=== PATIENT | male | born 1945 | race Caucasian/White ===

== ENCOUNTER → 2017-05-24 | Outpatient (REF) | payer MEDICARE, OTHER ==
[~2017-05-24] MED LIST: AMOX875T2 PO; ASPI325T24 PO; ATOR80TA59 PO; CARV25TA PO; CO Q100C10 PO; COLA100C5 PO; COUM1TAB17 PO; DEMA20TA6 PO; DEXT30SUSP PO; ELIQ5TAB PO; EPLE50TA PO; ESCI10TA2 PO; FURO40TA2 PO; FURO40VL IV; HYDR-3363 PO; LISI-538 PO; LORA10TA2 PO; METF10004 PO; METF500T13 PO; METR1TAB66 PO; MILKSUS PO; MOM30SS PO; NASA1SPR; NATE120T4 PO; NITR4TASL SL; NYST10PW TOP; PRIL40CA PO; TYLE325T5 PO; VITA200015 PO; VITMTA PO
[2017-05-27 00:07] LABS: Lyme Disease IgG/IgM Antibodie <0.91 ISR (0.00-0.90); Lyme Disease IgM Ab Quantitati <0.80 index (0.00-0.79)
== END ==
LOC: M LAB REF 16:49
PROVIDERS: ATTEND Nurse Practitioner Adult Health
DX: M25.50 Pain in unspecified joint (principal); Z11.59 Encounter for screening for other viral diseases

== ENCOUNTER → 2017-05-31 | Outpatient (CLI) | payer MEDICARE, OTHER ==
[2017-05-31 18:17] LABS: ALBUMIN 3.7 GM/DL (3.2-5.2); ANION GAP 6 MEQ/L (8-16); BLOOD UREA NITROGEN 22 MG/DL (7-18); CALCIUM LEVEL 9.1 MG/DL (8.8-10.2); CARBON DIOXIDE LEVEL 34 MEQ/L (21-32); CHLORIDE LEVEL 103 MEQ/L (98-107); CREATININE FOR GFR 1.24 MG/DL (0.70-1.30); GLOMERULAR FILTRATION RATE > 60.0 (>42); GLUCOSE, FASTING 194 MG/DL (83-110); MAGNESIUM LEVEL 2.1 MG/DL (1.8-2.4); PHOSPHORUS LEVEL 4.1 MG/DL (2.5-4.9); POTASSIUM SERUM 3.8 MEQ/L (3.5-5.1); SODIUM LEVEL 143 MEQ/L (136-145)
== END ==
LOC: M LAB 15:20
PROVIDERS: ATTEND Physician Assistant
DX: I50.42 Chronic combined systolic (congestive) and diastolic (congestive) heart failure (principal); I48.0 Paroxysmal atrial fibrillation; I42.0 Dilated cardiomyopathy

== ENCOUNTER → 2018-02-28 | Outpatient (CLI) | payer MEDICARE, OTHER ==
[2018-02-28 15:23] LABS: HEMATOCRIT 38.4 % (42.0-52.0); HEMOGLOBIN 12.3 g/dl (13.5-17.5); MEAN CORPUSCULAR HEMOGLOBIN 28.1 pg (27.0-33.0); MEAN CORPUSCULAR VOLUME 87.9 fl (80.0-96.0); PLATELET COUNT, AUTOMATED 240 10^3/uL (150-450); RED BLOOD COUNT 4.37 10^6/uL (4.30-6.10); RED CELL DISTRIBUTION WIDTH 14.3 % (11.5-14.5); WHITE BLOOD COUNT 11.8 10^3/uL (4.0-10.0)
[2018-02-28 16:03] LABS: ANION GAP 4 MEQ/L (8-16); BLOOD UREA NITROGEN 18 MG/DL (7-18); CALCIUM LEVEL 8.7 MG/DL (8.8-10.2); CARBON DIOXIDE LEVEL 32 MEQ/L (21-32); CHLORIDE LEVEL 106 MEQ/L (98-107); CREATININE FOR GFR 1.12 MG/DL (0.70-1.30); GLOMERULAR FILTRATION RATE > 60.0 (>42); GLUCOSE, FASTING 91 MG/DL (70-100); MAGNESIUM LEVEL 2.5 MG/DL (1.8-2.4); POTASSIUM SERUM 4.1 MEQ/L (3.5-5.1); SODIUM LEVEL 142 MEQ/L (136-145)
== END ==
LOC: M LAB 14:44
DX: I42.0 Dilated cardiomyopathy (principal)
CPT/HCPCS: 83735

== ENCOUNTER 2018-08-10 12:40 | Day surgery (SDC) | payer MEDICARE, BC, OTHER ==
[~2018-08-10 12:40] MED LIST changes: -AMOX875T2 PO; -ASPI325T24 PO; -ATOR80TA59 PO; -CARV25TA PO; -CO Q100C10 PO; -COLA100C5 PO; -COUM1TAB17 PO; -DEMA20TA6 PO; -DEXT30SUSP PO; -ELIQ5TAB PO; -EPLE50TA PO; -ESCI10TA2 PO; -FURO40TA2 PO; -FURO40VL IV; -HYDR-3363 PO; -LISI-538 PO; -LORA10TA2 PO; -METF10004 PO; -METF500T13 PO; -METR1TAB66 PO; +MIDAZOLAM INJ 2 MG/2 ML VIAL (J2250) As Ordered; -MILKSUS PO; -MOM30SS PO; -NASA1SPR; -NATE120T4 PO; -NITR4TASL SL; -NYST10PW TOP; -PRIL40CA PO; -TYLE325T5 PO; -VITA200015 PO; -VITMTA PO; +fentaNYL 100 MCG/2 ML INJECTION (J3010) As Ordered
[2018-08-10] MEDS: PROPARACAINE 0.5% OPHTH SOL 15ML OS (13:54)
[2018-08-10] MEDS: PHENYLEPHRINE 2.5% OPHTH SOL 2ML OS (13:55)
[2018-08-10] MEDS: TROPICAMIDE 1% OPHTH SOLN 2ML OS (13:55)
[2018-08-10] MEDS: OFLOXACIN 0.3 % (OCUFLOX) OPTH SOL 5ML OS (13:55)
[2018-08-10] MEDS: CARVedilol 6.25 MG TAB PO (13:58)
[2018-08-10 14:01] LABS: BEDSIDE GLUCOSE 151 MG/DL (83-110)
[2018-08-10] MEDS: POVIDONE-IODINE 5% OPHTH PREP SOL 30ML As Ordered (14:29)
[2018-08-10] MEDS: DUOVISC (0.50ML VISCOAT/0.55ML PROVISC) OPHTH KIT As Ordered (14:30)
[2018-08-10] MEDS: BALANCED SALT IRRIGATION SOLUTION 500ML BAG (FOR OR EYE MACHINE) As Ordered (14:30)
[2018-08-10] MEDS: CEFUROXIME 1MG/0.1ML INTRACAMERAL INJ As Ordered (14:30)
[2018-08-10] MEDS: LIDOCAINE 0.75%/EPINEPHRINE 0.025% IN BSS 1ML SYR INTRACAMERAL (OR ONLY) As Ordered (14:30)
== END 2018-08-10 15:05 | disposition home or self-care (01) ==
LOC: M SDC 12:40
DX: H25.12 Age-related nuclear cataract, left eye (principal); E11.21 Type 2 diabetes mellitus with diabetic nephropathy; I48.0 Paroxysmal atrial fibrillation; I25.10 Atherosclerotic heart disease of native coronary artery without angina pectoris; I50.22 Chronic systolic (congestive) heart failure; Z79.01 Long term (current) use of anticoagulants; Z79.02 Long term (current) use of antithrombotics/antiplatelets; Z79.84 Long term (current) use of oral hypoglycemic drugs; Z79.82 Long term (current) use of aspirin; Z98.61 Coronary angioplasty status; Z95.810 Presence of automatic (implantable) cardiac defibrillator; Z88.2 Allergy status to sulfonamides; E78.5 Hyperlipidemia, unspecified; Z87.891 Personal history of nicotine dependence
CPT/HCPCS: 66984

== ENCOUNTER → 2019-05-16 | Outpatient (REF) | payer MEDICARE, OTHER ==
[~2019-05-16] MED LIST changes: +AMOX875T2 PO; +ASPI-255 PO; +ASPI81TA26 PO; +ATOR80TA59 PO; +CARV25TA PO; +CO Q100C10 PO; +COLA100C5 PO; +COUM1TAB17 PO; +DEMA20TA6 PO; +DEXT30SUSP PO; +ELIQ5TAB PO; +EPLE50TA PO; +ESCI10TA2 PO; +FURO40TA2 PO; +GLIP2.5T6 PO; +HYDR-3363 PO; +ISOS30TA4 PO; +LISI-538 PO; +LISI10TA4 PO; +LORA10TA3 PO; +METF10004 PO; +METF500T13 PO; +METR-265 PO; -MIDAZOLAM INJ 2 MG/2 ML VIAL (J2250) As Ordered; +MILK120011 PO; +MOM30SS PO; +NASA1SPR; +NATE120T4 PO; +NITR4TASL SL; +NYST-15 TOP; +PRIL40CA PO; +TRAD5TAB PO; +TYLE325T5 PO; +VITA2000 PO; +VITA200015 PO; +VITMTA PO; +[UNRECOGNIZED DRUG - CODE] IV; -fentaNYL 100 MCG/2 ML INJECTION (J3010) As Ordered
== END ==
LOC: M LAB REF 17:36
PROVIDERS: ATTEND Nurse Practitioner Adult Health
DX: S91.302A Unspecified open wound, left foot, initial encounter (principal)